=== PATIENT | male | born 1995 | race Caucasian/White ===

== ENCOUNTER 2021-06-01 19:16 | Emergency (ER) | payer OTHER ==
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
[2021-06-02] MEDS ORDERED: METH-1165 PO (05:09)
[2021-06-02] MEDS ORDERED: NAPR-837 PO (05:09)
[2021-06-02] MEDS ORDERED: methocarbamoL 750 MG TAB PO ONE (05:10)
[2021-06-02] MEDS ORDERED: KETOROLAC 60MG 2ML VIAL IM ONE (05:10)
[2021-06-02 05:25] VITALS: BP 132/67
== END 2021-06-02 05:43 | disposition home or self-care (01) ==
LOC: M ED 19:16
DX: S13.4XXA Sprain of ligaments of cervical spine, initial encounter (principal); V49.49XA Driver injured in collision with other motor vehicles in traffic accident, initial encounter; Y92.410 Unspecified street and highway as the place of occurrence of the external cause
CPT/HCPCS: 70450; 72125; 72128; 96372; 99284; J1885